=== PATIENT | male | born 1940 | race Caucasian/White ===

== ENCOUNTER 2022-10-14 16:58 | Inpatient (IN) | payer OTHER ==
[~2022-10-14] VITALS: Ht 182.9 cm; Wt 113.4 kg
[2022-10-14 17:03] VITALS: BP_SYST 170
[2022-10-14] MEDS ORDERED: ROSU40TA23 PO (17:57)
[2022-10-14] MEDS ORDERED: ALLO100T PO (17:57)
[2022-10-14] MEDS ORDERED: LEVO75CA5 PO (17:57)
[2022-10-14] MEDS ORDERED: FURO20TA4 PO (17:57)
[2022-10-14] MEDS ORDERED: ACET500P25 PO (17:57)
[2022-10-14] MEDS ORDERED: LISI-652 PO (17:57)
[2022-10-14] MEDS ORDERED: BACITRACIN 1 GM OINT TP ONE ×2 (18:36→18:45)
[2022-10-14] MEDS ORDERED: MORPHINE 4 MG INJ. 4 MG/ML VIAL IM ONE (18:45)
[2022-10-14] MEDS ORDERED: IBUP-1971 PO (19:06)
[2022-10-14] MEDS ORDERED: HYDR-3917 PO (19:06)
[2022-10-14] MEDS ORDERED: ONDANSETRON HCL 4 MG/2 ML VIAL IVP PRN (21:00)
[2022-10-14 21:36] LABS: BASOPHILS # (AUTO) 0.1 K/uL (0.0-0.2); BASOPHILS % (AUTO) 0.8 % (0.0-2.0); EOSINOPHILS # (AUTO) 0.1 K/uL (0.0-0.4); EOSINOPHILS % (AUTO) 0.8 % (0.0-4.0); HEMATOCRIT 33.8 % (36-54); HEMOGLOBIN 10.8 g/dL (14.0-18.0); LYMPHOCYTES # (AUTO) 0.6 K/uL (1.0-5.5); LYMPHOCYTES % (AUTO) 4.6 % (20.5-51.5); MEAN CORPUSCULAR HEMOGLOBIN 29 pg (27-31); MEAN CORPUSCULAR HGB CONC 32 % (32-36); MEAN CORPUSCULAR VOLUME 90 fL (79.0-98.0); MONOCYTES # (AUTO) 1.2 K/uL (0.0-1.0); MONOCYTES % (AUTO) 9.6 % (1.7-9.3); NEUTROPHILS # (AUTO) 10.8 K/uL (1.8-7.7); NEUTROPHILS % (AUTO) 84.2 % (40.0-70.0); PLATELET COUNT (AUTO) 218 K/uL (130-430); RED BLOOD CELL COUNT(AUTO) 3.75 MIL/uL (4.2-6.2); RED CELL DISTRIBUTION WIDTH 15.7 % (9.0-15.0); WHITE BLOOD COUNT (AUTO) 12.8 K/uL (4.8-10.8)
[2022-10-14 21:40] LABS: ANION GAP 10 (5-15); CALCIUM 8.5 mg/dL (8.4-11.0); CHLORIDE 108 mmol/L (98-107); CREATININE 2.07 mg/dL (0.55-1.30); GLUCOSE 286 mg/dL (70-99); UREA NITROGEN, BLOOD 37 mg/dL (8-21)
[2022-10-14 21:48] LABS: ALANINE AMINOTRANSFERASE 21 U/L (12-78); ALBUMIN 3.1 g/dL (3.4-4.8); ASPARTATE AMINOTRANSFERASE 13 U/L (10-37); TOTAL BILIRUBIN 0.3 mg/dL (0.0-1.0)
[2022-10-14] MEDS ORDERED: INSULIN REGULAR, HUMAN 10 UNITS/0.1 ML, 3 ML VIAL ONE (22:41)
[2022-10-14] MEDS: INSULIN REGULAR, HUMAN 100 UNITS/ML, 3 ML VIAL (humuLIN R) SUBCUT PRN (22:44)
[2022-10-14 23:11] VITALS: BP_SYST 155
[2022-10-15] MEDS: INSULIN REGULAR, HUMAN 100 UNITS/ML, 3 ML VIAL (humuLIN R) SUBCUT PRN ×4 (06:25→21:24)
[2022-10-15 08:29] VITALS: BP_SYST 133
[2022-10-15] MEDS ORDERED: FUROSEMIDE 20 MG TABLET PO SCH (11:30)
[2022-10-15] MEDS ORDERED: D5/0.45 NS 1,000 ML IV SCH (11:30)
[2022-10-15] MEDS ORDERED: ONDANSETRON HCL 4 MG/2 ML VIAL IVP PRN (11:30)
[2022-10-15] MEDS ORDERED: HYDROcodone/ACETAMIN 5-325 MG TAB (NORCO/ VICODIN) PO PRN (11:30)
[2022-10-15] MEDS ORDERED: IBUPROFEN 800 MG TABLET PO PRN (11:30)
[2022-10-15] MEDS ORDERED: LORazepam 2 MG/ML VIAL IVP PRN (11:30)
[2022-10-15] MEDS ORDERED: ACETAMINOPHEN 325 MG TABLET PO PRN ×2 (11:30→14:15)
[2022-10-15] MEDS ORDERED: NALOXONE HCL 0.4 MG/ML AMP (NARCAN) IVP PRN ×2 (11:30)
[2022-10-15 11:49] VITALS: BP_SYST 141
[2022-10-15] MEDS: MORPHINE 2 MG/ML INJ. SYRINGE IVP PRN (12:18)
[2022-10-15 16:14] VITALS: BP_SYST 139
[2022-10-15] MEDS: NACL 0.9% 1,000 ML IV SCH ×2 (18:10→23:19)
[2022-10-15 20:00] VITALS: BP_SYST 127
[2022-10-15] MEDS ORDERED: NON-FORMULARY MEDICATION (Rosuvastatin Calcium 40 MG) PO SCH (21:00)
[2022-10-15] MEDS ORDERED: lisinopriL 5 MG TABLET PO SCH (21:00)
[2022-10-15] MEDS: ATORVASTATIN 20 MG TABLET PO SCH (21:12)
[2022-10-15] MEDS: HYDROcodone/ACETAMIN 10-325 MG TAB PO PRN (23:12)
[2022-10-16] VITALS: BP_SYST 124
[2022-10-16 06:17] LABS: BASOPHILS # (AUTO) 0.1 K/uL (0.0-0.2); BASOPHILS % (AUTO) 1.3 % (0.0-2.0); EOSINOPHILS # (AUTO) 0.6 K/uL (0.0-0.4); EOSINOPHILS % (AUTO) 6.3 % (0.0-4.0); HEMATOCRIT 27.3 % (36-54); LYMPHOCYTES # (AUTO) 0.9 K/uL (1.0-5.5); LYMPHOCYTES % (AUTO) 10.2 % (20.5-51.5); MEAN CORPUSCULAR HEMOGLOBIN 30 pg (27-31); MEAN CORPUSCULAR HGB CONC 33 % (32-36); MEAN CORPUSCULAR VOLUME 90 fL (79.0-98.0); MONOCYTES # (AUTO) 1.1 K/uL (0.0-1.0); MONOCYTES % (AUTO) 12.7 % (1.7-9.3); NEUTROPHILS # (AUTO) 6.1 K/uL (1.8-7.7); NEUTROPHILS % (AUTO) 69.5 % (40.0-70.0); PLATELET COUNT (AUTO) 163 K/uL (130-430); RED BLOOD CELL COUNT(AUTO) 3.05 MIL/uL (4.2-6.2); RED CELL DISTRIBUTION WIDTH 15.1 % (9.0-15.0); WHITE BLOOD COUNT (AUTO) 8.8 K/uL (4.8-10.8)
[2022-10-16 06:33] LABS: ALANINE AMINOTRANSFERASE 18 U/L (12-78); ALBUMIN 2.6 g/dL (3.4-4.8); ANION GAP 7 (5-15); ASPARTATE AMINOTRANSFERASE 18 U/L (10-37); CALCIUM 7.8 mg/dL (8.4-11.0); CHLORIDE 108 mmol/L (98-107); CREATININE 1.96 mg/dL (0.55-1.30); GLUCOSE 249 mg/dL (70-99); PHOSPHORUS 3.2 mg/dL (2.7-4.5); TOTAL BILIRUBIN 0.5 mg/dL (0.0-1.0); UREA NITROGEN, BLOOD 37 mg/dL (8-21)
[2022-10-16] MEDS: INSULIN REGULAR, HUMAN 100 UNITS/ML, 3 ML VIAL (humuLIN R) SUBCUT PRN ×4 (06:58→22:20)
[2022-10-16] MEDS: LEVOTHYROXINE SODIUM 0.075 MG TABLET PO SCH (07:02)
[2022-10-16 08:00] VITALS: BP_SYST 138
[2022-10-16] MEDS: ALLOPURINOL 100 MG TABLET (ZYLOPRIM) PO SCH (08:30)
[2022-10-16] MEDS: MORPHINE 2 MG/ML INJ. SYRINGE IVP PRN (08:30)
[2022-10-16] MEDS ORDERED: NON-FORMULARY MEDICATION (Levothyroxine Sodium (Levothyroxine) 75 MCG) PO SCH (09:00)
[2022-10-16] MEDS: NACL 0.9% 1,000 ML IV SCH ×2 (10:16→21:50)
[2022-10-16 11:31] VITALS: BP_SYST 146
[2022-10-16 17:27] VITALS: BP_SYST 141
[2022-10-16] MEDS: ATORVASTATIN 20 MG TABLET PO SCH (21:51)
[2022-10-17] VITALS: BP_SYST 146
[2022-10-17] MEDS: NACL 0.9% 1,000 ML IV SCH ×3 (06:49→20:41)
[2022-10-17 07:02] LABS: BASOPHILS # (AUTO) 0.1 K/uL (0.0-0.2); EOSINOPHILS # (AUTO) 0.6 K/uL (0.0-0.4); EOSINOPHILS % (AUTO) 6.5 % (0.0-4.0); HEMATOCRIT 28.5 % (36-54); HEMOGLOBIN 9.3 g/dL (14.0-18.0); LYMPHOCYTES # (AUTO) 0.8 K/uL (1.0-5.5); LYMPHOCYTES % (AUTO) 9.5 % (20.5-51.5); MEAN CORPUSCULAR HEMOGLOBIN 29 pg (27-31); MEAN CORPUSCULAR HGB CONC 33 % (32-36); MEAN CORPUSCULAR VOLUME 89 fL (79.0-98.0); MONOCYTES # (AUTO) 1.1 K/uL (0.0-1.0); NEUTROPHILS # (AUTO) 6.2 K/uL (1.8-7.7); PLATELET COUNT (AUTO) 169 K/uL (130-430); RED BLOOD CELL COUNT(AUTO) 3.19 MIL/uL (4.2-6.2); RED CELL DISTRIBUTION WIDTH 15.2 % (9.0-15.0); WHITE BLOOD COUNT (AUTO) 8.8 K/uL (4.8-10.8)
[2022-10-17] MEDS: LEVOTHYROXINE SODIUM 0.075 MG TABLET PO SCH (07:07)
[2022-10-17 07:32] LABS: ANION GAP 7 (5-15); CALCIUM 8.3 mg/dL (8.4-11.0); CHLORIDE 108 mmol/L (98-107); CREATININE 1.83 mg/dL (0.55-1.30); GLUCOSE 235 mg/dL (70-99); PHOSPHORUS 3.1 mg/dL (2.7-4.5); UREA NITROGEN, BLOOD 34 mg/dL (8-21)
[2022-10-17 08:00] VITALS: BP_SYST 146
[2022-10-17] MEDS: ALLOPURINOL 100 MG TABLET (ZYLOPRIM) PO SCH (08:48)
[2022-10-17] MEDS: INSULIN REGULAR, HUMAN 100 UNITS/ML, 3 ML VIAL (humuLIN R) SUBCUT PRN ×4 (08:51→20:34)
[2022-10-17 11:24] VITALS: BP_SYST 137
[2022-10-17] MEDS: HYDROcodone/ACETAMIN 10-325 MG TAB PO PRN (11:30)
[2022-10-17 15:13] VITALS: BP_SYST 96
[2022-10-17 20:00] VITALS: BP_SYST 130
[2022-10-17] MEDS: ATORVASTATIN 20 MG TABLET PO SCH (20:23)
[2022-10-18] VITALS: BP_SYST 136
[2022-10-18] MEDS: LEVOTHYROXINE SODIUM 0.075 MG TABLET PO SCH (06:12)
[2022-10-18] MEDS: INSULIN REGULAR, HUMAN 100 UNITS/ML, 3 ML VIAL (humuLIN R) SUBCUT PRN ×4 (06:20→21:39)
[2022-10-18 08:00] VITALS: BP_SYST 136
[2022-10-18] MEDS: ALLOPURINOL 100 MG TABLET (ZYLOPRIM) PO SCH (09:15)
[2022-10-18] MEDS: HYDROcodone/ACETAMIN 10-325 MG TAB PO PRN (09:15)
[2022-10-18] MEDS: NACL 0.9% 1,000 ML IV SCH ×2 (11:30→21:30)
[2022-10-18 12:00] VITALS: BP_SYST 137
[2022-10-18 16:00] VITALS: BP_SYST 132
[2022-10-18 20:00] VITALS: BP_SYST 139
[2022-10-18] MEDS: ATORVASTATIN 20 MG TABLET PO SCH (21:18)
[2022-10-19] VITALS: BP_SYST 133
[2022-10-19 04:20] VITALS: BP_SYST 139
[2022-10-19] MEDS: LEVOTHYROXINE SODIUM 0.075 MG TABLET PO SCH (06:16)
[2022-10-19] MEDS: NACL 0.9% 1,000 ML IV SCH (06:22)
[2022-10-19] MEDS: INSULIN REGULAR, HUMAN 100 UNITS/ML, 3 ML VIAL (humuLIN R) SUBCUT PRN ×3 (06:25→17:07)
[2022-10-19 08:07] VITALS: BP_SYST 159
[2022-10-19] MEDS: ALLOPURINOL 100 MG TABLET (ZYLOPRIM) PO SCH (10:30)
[2022-10-19 11:22] VITALS: BP_SYST 137
[2022-10-19 14:59] VITALS: BP_SYST 122
[2022-10-19] MEDS: MORPHINE 2 MG/ML INJ. SYRINGE IVP PRN (16:04)
[2022-10-19 17:22] VITALS: BP_SYST 122
== END 2022-10-19 17:30 | disposition home health service (06) | DRG 562 ==
LOC: SED 16:58 → SMU 20:48
PROVIDERS: ADMIT Internal Medicine; ATTEND Internal Medicine
PROC: 2W3AX3Z Immobilization of Right Upper Arm using Brace (ICD-10-PCS; principal; 2022-10-14)
DX: S42.341A Displaced spiral fracture of shaft of humerus, right arm, initial encounter for closed fracture (principal); N17.0 Acute kidney failure with tubular necrosis; E44.0 Moderate protein-calorie malnutrition; R65.10 Systemic inflammatory response syndrome (SIRS) of non-infectious origin without acute organ dysfunction; M10.9 Gout, unspecified; E11.65 Type 2 diabetes mellitus with hyperglycemia; E03.9 Hypothyroidism, unspecified; D64.9 Anemia, unspecified; E78.5 Hyperlipidemia, unspecified; E83.51 Hypocalcemia; E88.09 Other disorders of plasma-protein metabolism, not elsewhere classified; W18.30XA Fall on same level, unspecified, initial encounter; W22.09XA Striking against other stationary object, initial encounter; S09.90XA Unspecified injury of head, initial encounter; I12.9 Hypertensive chronic kidney disease with stage 1 through stage 4 chronic kidney disease, or unspecified chronic kidney disease; E11.22 Type 2 diabetes mellitus with diabetic chronic kidney disease; N18.9 Chronic kidney disease, unspecified; Z20.822 Contact with and (suspected) exposure to COVID-19; Z88.8 Allergy status to other drugs, medicaments and biological substances; Z79.899 Other long term (current) drug therapy; Z68.33 Body mass index [BMI] 33.0-33.9, adult; Y99.8 Other external cause status; Y92.007 Garden or yard of unspecified non-institutional (private) residence as the place of occurrence of the external cause; Z79.1 Long term (current) use of non-steroidal anti-inflammatories (NSAID)
CPT/HCPCS: 36415; 70450-TC; 72125-TC; 73060-TC; 76376; 80048; 80053; 82962; 83735; 84100; 84484; 85025; 96372; 97110-GP; 97112-GP; 97530-GP; 99285; J1815; J2270; J2405

== ENCOUNTER 2022-11-17 09:46 | Inpatient (IN) | payer OTHER ==
[~2022-11-17] VITALS: Ht 182.9 cm; Wt 104.3 kg
[~2022-11-17 09:46] MED LIST: ACET500P25 PO; ALLO100T PO; FURO20TA4 PO; HYDR-3917 PO; IBUP-1971 PO; LEVO75CA5 PO; LISI-652 PO; ROSU40TA23 PO
--- NOTE | 2022-11-17 09:50 | NUR ---
Patient to ER bed 05 to gown for evaluation. Side rails up.
[2022-11-17 09:51] VITALS: BP_SYST 140
--- NOTE | 2022-11-17 10:08 | NUR ---
PT BIB BLS FROM HOME C/O ABD PAIN RT LOWER QUADRANT. PT CONSTIPATED X 6DAYS. PT STATES PAIN 3/10. PT STATES HAS GROIN PAIN. PT HAS RT ARM PAIN FROM MECHANICAL FALL ON 10/14. PT HAS BRACE ON RIGHT ARM. PT HISTORY OF CRONIC BACK. PT IS NON AMBULATORY. PT HAS NKA. PT IS NON AMBULATORY. PT IS AAO X4. PT IS RESTING IN BED RAILS UP VSS.
[2022-11-17] MEDS ORDERED: KETOROLAC TROMETHAMINE 30 MG VIAL IVP ONE (10:15)
[2022-11-17] MEDS ORDERED: NACL 0.9% 1,000 ML IV ONE (10:15)
[2022-11-17 10:57] LABS: ALANINE AMINOTRANSFERASE 16 U/L (12-78); ALBUMIN 2.9 g/dL (3.4-4.8); ANION GAP 10 (5-15); ASPARTATE AMINOTRANSFERASE 17 U/L (10-37); CALCIUM 8.5 mg/dL (8.4-11.0); CHLORIDE 110 mmol/L (98-107); LIPASE 24 U/L (73-393); TOTAL BILIRUBIN 0.3 mg/dL (0.0-1.0); UREA NITROGEN, BLOOD 28 mg/dL (8-21)
--- NOTE | 2022-11-17 10:59 | NUR ---
BLOOD GLUCOSE 48 REPORTED FROM LAB, AWARE
[2022-11-17 11:01] LABS: GLUCOSE 48 mg/dL (70-99)
[2022-11-17 11:13] LABS: BASOPHILS # (AUTO) 0.1 K/uL (0.0-0.2); EOSINOPHILS # (AUTO) 0.5 K/uL (0.0-0.4); EOSINOPHILS % (AUTO) 6.1 % (0.0-4.0); HEMOGLOBIN 12.1 g/dL (14.0-18.0); LYMPHOCYTES % (AUTO) 12.2 % (20.5-51.5); MEAN CORPUSCULAR HEMOGLOBIN 28 pg (27-31); MEAN CORPUSCULAR HGB CONC 32 % (32-36); MEAN CORPUSCULAR VOLUME 89 fL (79.0-98.0); MONOCYTES # (AUTO) 0.7 K/uL (0.0-1.0); MONOCYTES % (AUTO) 8.6 % (1.7-9.3); NEUTROPHILS # (AUTO) 5.7 K/uL (1.8-7.7); NEUTROPHILS % (AUTO) 72.1 % (40.0-70.0); PLATELET COUNT (AUTO) 244 K/uL (130-430); RED BLOOD CELL COUNT(AUTO) 4.26 MIL/uL (4.2-6.2); RED CELL DISTRIBUTION WIDTH 16.1 % (9.0-15.0); WHITE BLOOD COUNT (AUTO) 7.9 K/uL (4.8-10.8)
[2022-11-17] MEDS ORDERED: DEXTROSE 50% JECT 50 ML DISP.SYRIN IVP ONE (11:15)
--- NOTE | 2022-11-17 11:15 | NUR ---
Patient awake and responsive, denies pain and or discomfort at this time.
--- NOTE | 2022-11-17 13:51 | NUR ---
Admit bed requested Patient will be admitted to care of [Sean]. Admitted to [Tele] unit. Diagnosis [fall] Inpatient (Yes or No) [yes] Observation (Yes or No) [No] Orientation concerns or request close to nursing station (Yes or No) [No] Covid Status [n/a] On vent or bipap [n/a] Isolation requirements [n/a] Needs a sitter [n/a] From Home (Yes or if No enter name of facility) [n/a] Requires Dialysis (Yes or No) [n/a] Med Rec Completed (Yes of No) []
[2022-11-17] MEDS ORDERED: KCL 10 mEq in D5/0.45NS 1000mL 1,000 ML IV SCH (16:15)
--- NOTE | 2022-11-17 16:47 | NUR ---
Patient will be admitted to care of Dr. chaney. Admitted to MST unit. Will go to room 120B. Belongings list completed. Complete and up to date summary report printed. SBAR report to be given at bedside with opportunity for questions.
--- NOTE | 2022-11-17 16:55 | NUR ---
CONSULT NEUROLOGY LOC JAVIER CHINO SENT A TEXT MESSAGE TO [facility]
[2022-11-17 17:00] VITALS: BP_SYST 115
--- NOTE | 2022-11-17 17:11 | NUR ---
CONSULTATION PAGED YES SDRADRN\SD REASON FOR CONSULTATION: HENRY WAS CONSULT CALLED? YES PERSON WHO WAS NOTIFIED: JUAN MANUEL CONSULTING PHYSICIAN:ARNULFO COWAN NUMERICAL CONTROL MACHINE MACHINIST SPECIALTY: RENAL NUMERICAL CONTROL MACHINE MACHINIST PHONE NUMBER:[phone] REQUESTING PHYSICIAN:ERIN
[2022-11-17 17:37] VITALS: BP_SYST 115
--- NOTE | 2022-11-17 18:34 | NUR ---
RECEIVED PT FROM ER AT 1630. VITALS STABLE. PT WAS IN A DEEP SLEEP. MARYJO AT BEDSIDE ANSWERED ADMISSION QUESTIONS FOR PATIENT. EDUCATED FAMILY ON USE OF CALL LIGHT AND THEY VERBALIZED UNDERSTANDING. ALL NEEDS MET AT THIS TIME, SAFETY CHECKS MADE AND CALL LIGHT WITHIN REACH. WILL ENDORSE TO PAPER NOVELTY MAKER NURSE.
--- NOTE | 2022-11-17 19:40 | NUR ---
PM ASSESSMENT; -Patient is awake, alert, oriented X 4. Pt denies any chest pain,pain,sob,or any acute distress. Pt has a sling on rt arm, good circulation, no tingling or numbness per pt's statement on rt extremity. Patient oriented to hospital room, call light, toileting, pain management and safety-teach back done. Bed alarmed, side rails x3,Call light within reach. Cont to monitor pt.
[2022-11-17 19:42] VITALS: BP_SYST 127
[2022-11-17] MEDS: KCL 10 mEq in D5/0.45NS 1000mL 1,000 ML IV SCH (21:40)
--- NOTE | 2022-11-17 22:05 | NUR ---
ROUNDS; MAINTAINS STERILE FIELD DURING INSERTION PROCEDURE; INSERTED RUSHING CATH #14 MONGOLIAN, GOOD CLOUDY DARK YELLOW RESIDUAL NOTED. COLLECTED U/A AND WILL SEND TO LAB FOR U/A PER ORDER. - ALSO, INSERTED NEW IV OF UA #20 PATENT,GOOD BLOOD RETURNED AFTER FLUSHED W/ NS, ATTEMPTED X1,SECURED WITH TAPE, INFUSING IVF. CALL LIGHT W/IN REACH, SIDE RAILS X3. CONT TO MONITOR PT.
[2022-11-17 22:17] LABS: BILIRUBIN,URINE 1+ (NEGATIVE); BLOOD, URINE 3+ (NEGATIVE); COLOR,URINE YELLOW (YELLOW); GLUCOSE,URINE NEGATIVE (NEGATIVE); KETONES,URINE TRACE (NEGATIVE); LEUKOCYTE ESTERASE ,URINE 2+ (NEGATIVE); NITRITE, URINE NEGATIVE (NEGATIVE); PROTEIN URINE 1+ (NEGATIVE); UROBILINOGEN,URINE 0.2 (0.2-1.0)
[2022-11-17 22:27] LABS: CLARITY/URINE HAZY (CLEAR)
[2022-11-17 23:16] LABS: BACTERIA,URINE MANY /HPF (None Seen); WBC,URINE >100 /HPF (0-3)
[2022-11-18] VITALS: BP_SYST 130
--- NOTE | 2022-11-18 00:10 | NUR ---
ROUNDS; -Pt is resting in bed comfortably. NO ss/ any acute distress noted. VSS. IV site patent, no s/s any infiltration noted. Bed alarmed,side rails x3, call light w/in reach. Cont to monitor pt. Addendum: 11/18/22 at 0027 by [facility], JESSICA LOPEZ ADDITIONAL NOTES; RUSHING CATH W/ GRAVITY DRAINS DARK URINE OUTPUT NOTED.
--- NOTE | 2022-11-18 01:00 | NUR ---
NOTES; ENDORSED TO LINDA NURSE TO CONTINUITY OF CARE.
[2022-11-18] MEDS: KCL 10 mEq in D5/0.45NS 1000mL 1,000 ML IV SCH ×2 (06:39→14:54)
[2022-11-18 08:00] VITALS: BP_SYST 147
--- NOTE | 2022-11-18 08:23 | NUR ---
OPENING NOTES: PT IN BED WITH EYES CLOSED. RESPONDED TO NAME. BREATHING IS EVEN AND UNLABORED ON RA 96%. NO S/S OF DISTRESS OR PAIN REPORTED. UPDATED PT BOARD. VITAL SIGNS STABLE. EDUCATED PT ON USE OF CALL LIGHT. PT VERBALIZED UNDERSTANDING. ALL NEEDS MET AT THIS TIME, SAFETY CHECKS MADE AND CALL LIGHT WITHIN REACH.
--- NOTE | 2022-11-18 08:30 | NUR ---
MD: PAGED DR KHNA TO NOTIFY HIM THAT PT HAS A RIGHT SHOULDER FRACTURE IN A RIGID SLING TO REQUEST ORTHO CONSULT AND TO INFORM HIM THAT THE PATIENT'S URINALYSIS CAME BACK POSITIVE TO REQUEST ANTIBIOTICS. WILL REQUEST PHYSICAL THERAPY EVAL AFTER ORTHO CONSULT.
--- NOTE | 2022-11-18 11:15 | NUR ---
MD: DR KHAN BEDSIDE WITH PATIENT AND DAUGHTER
--- NOTE | 2022-11-18 11:20 | NUR ---
CONSULTATION: REASON FOR CONSULT; RIGHT SHOULDER FRACTURE CONSULTING PHYSICIAN: Raleigh LEMUS ORDERED BY: ERIN SPOKE WITH DR LMEUS HIMSELF AND IS AWARE OF CONSULT [phone]
[2022-11-18] MEDS ORDERED: MILK OF MAGNESIA 30 ML UDC PO ONE (11:30)
[2022-11-18] MEDS ORDERED: DOCUSATE SODIUM 100 MG CAPSULE PO PRN (11:30)
[2022-11-18 12:00] VITALS: BP_SYST 135
--- NOTE | 2022-11-18 12:51 | NUR ---
CONSULTATION: REASON FOR CONSULT: SURGERY CONSULTING PHYSICIAN: FLORECITA ORDERED BY: ERIN SPOKE WITH GARRY [phone]
--- NOTE | 2022-11-18 13:27 | NUR ---
dr hernandez ordered ekg of the patient. he wanted and echo but informed him it has been completed.
[2022-11-18] MEDS: cefTRIAXone 1 GM IVPB PREMIX 50 ML IV SCH (13:52)
--- NOTE | 2022-11-18 15:29 | NUR ---
EULOGIO FROM PHYSICAL THERAPY AND CAITIE FROM OCCUPATIONAL THERAPY SAID THEY WILL WAIT UNTIL THE CONSULT WITH DR DESAI OR DR GIBSON HAS BEEN COMPLETED BEFORE THEY DO THERAPY WITH THE PATIENT.THEY WILL REVISIT THE PATIENT TOMORROW TO FOLLOW UP.
[2022-11-18 16:26] VITALS: BP_SYST 140
--- NOTE | 2022-11-18 16:27 | NUR ---
ST EVALUATION COMPLETED. ST TX NOT INDICATED AT THIS TIME. RECOMMEND PO DIET OF MECHANICAL SOFT/THIN LIQUIDS. DISTANT SUPERVISION AND FULL ASPIRATION PRECAUTIONS
--- NOTE | 2022-11-18 19:30 | NUR ---
CLOSING NOTES: PT IN BED WATCHING TV. NO S/S OF DISTRESS OR PAIN REPORTED. BREATHING IS EVEN AND UNLABORED ON RA 98%. EDUCATED PATIENT ON USE OF CALL LIGHT. VERBALIZED UNDERSTANDING. ALL NEEDS MET AT TIME, SAFETY CHECKS MADE AND CALL LIGHT WITH IN REACH.
[2022-11-18 20:00] VITALS: BP_SYST 141
[2022-11-19] VITALS: BP_SYST 145
[2022-11-19] MEDS: KCL 10 mEq in D5/0.45NS 1000mL 1,000 ML IV SCH ×3 (00:47→23:19)
--- NOTE | 2022-11-19 05:20 | NUR ---
ROUNDING PATIENT IS CONFUSED ON WHERE HE IS AT. HE STATED "NEEDS TO GET UP BECAUSE SON IS CHOKING THROUGH THE WALL". PATIENT WAS ABLE TO STATE NAME AND . REORIENTED PATIENT TO PLACE AND TIME. REPOSITIONED PATIENT AND WILL CONTINUE TO MONITOR.
--- NOTE | 2022-11-19 07:00 | NUR ---
CLOSING NOTES PATIENT IS ASLEEP IN BED. BREATHING IS EQUAL AND UNLABORED. F/C IS IN PLACE. SAFETY CHECKS DONE AND CALL LIGHT WITH IN REACH,
[2022-11-19 07:49] LABS: BASOPHILS # (AUTO) 0.1 K/uL (0.0-0.2); BASOPHILS % (AUTO) 0.5 % (0.0-2.0); EOSINOPHILS # (AUTO) 0.1 K/uL (0.0-0.4); EOSINOPHILS % (AUTO) 0.5 % (0.0-4.0); HEMATOCRIT 34.6 % (36-54); LYMPHOCYTES # (AUTO) 0.4 K/uL (1.0-5.5); LYMPHOCYTES % (AUTO) 3.2 % (20.5-51.5); MEAN CORPUSCULAR HEMOGLOBIN 28 pg (27-31); MEAN CORPUSCULAR HGB CONC 32 % (32-36); MEAN CORPUSCULAR VOLUME 89 fL (79.0-98.0); MONOCYTES % (AUTO) 7.9 % (1.7-9.3); NEUTROPHILS # (AUTO) 10.8 K/uL (1.8-7.7); NEUTROPHILS % (AUTO) 87.9 % (40.0-70.0); PLATELET COUNT (AUTO) 221 K/uL (130-430); RED BLOOD CELL COUNT(AUTO) 3.89 MIL/uL (4.2-6.2); RED CELL DISTRIBUTION WIDTH 15.5 % (9.0-15.0); WHITE BLOOD COUNT (AUTO) 12.3 K/uL (4.8-10.8)
[2022-11-19 08:00] LABS: ALANINE AMINOTRANSFERASE 10 U/L (12-78); ALBUMIN 2.5 g/dL (3.4-4.8); ANION GAP 10 (5-15); ASPARTATE AMINOTRANSFERASE 10 U/L (10-37); CHLORIDE 104 mmol/L (98-107); CHOLESTEROL 87 mg/dL (<200); CREATININE 1.71 mg/dL (0.55-1.30); GLUCOSE 398 mg/dL (70-99); HDL CHOLESTEROL 45 mg/dL (>45); LIPASE 23 U/L (73-393); THYROID STIMULATING HORMONE 0.73 uIu/mL (0.34-4.82); TOTAL BILIRUBIN 0.4 mg/dL (0.0-1.0); TRIGLYCERIDES 98 mg/dL (30-150); UREA NITROGEN, BLOOD 20 mg/dL (8-21)
--- NOTE | 2022-11-19 08:06 | NUR ---
OPENING NOTES: RECEIVED BEDSIDE SBAR, NO S/S OF ANY DISTRESS, NON LABOR BREATHING, IV INTACT, BED AT LOW AND LOCKED POSITION CALL LIGHT IN REACH, ALL SAFETY CHECKS DONE, WILL CONT TO MONITOR PATIENT THOUGHT THE DAY.
[2022-11-19] MEDS ORDERED: LEVOTHYROXINE SODIUM 0.075 MG TABLET PO ONE (08:15)
[2022-11-19] MEDS: lisinopriL 5 MG TABLET PO SCH (08:48)
[2022-11-19] MEDS: ALLOPURINOL 100 MG TABLET (ZYLOPRIM) PO SCH (08:48)
[2022-11-19] MEDS ORDERED: ATORVASTATIN 20 MG TABLET PO ONE (09:00)
[2022-11-19] MEDS ORDERED: DOCU-144 PO (10:27)
--- NOTE | 2022-11-19 11:06 | NUR ---
PATIENT IS D/C, SPOKE WITH , UNABLE TO CARE FOR PATIENT, WILL PAGE DR KHAN FOR SNF/REHAB ORDERS.
[2022-11-19 11:58] VITALS: BP_SYST 140
[2022-11-19] MEDS: cefTRIAXone 1 GM IVPB PREMIX 50 ML IV SCH (12:37)
--- NOTE | 2022-11-19 15:44 | NUR ---
Pt was cleared by nursing for OT eval. Patient was seen for eval with family present. Pt will benefit from SNF with OT/PT tx. Nursing notified. Pls see OT evaluation form in chart for more detail.
[2022-11-19 16:32] VITALS: BP_SYST 125
[2022-11-19] MEDS ORDERED: MELO-89 PO (18:07)
--- NOTE | 2022-11-19 18:39 | NUR ---
CLOSING NOTES: PATIENT REMAINED STABLE TODAY, NO S/S OF ANY DISTRESS NON LABOR BREATHING, BED AT LOW AND LOCKED POSITION CALL LIGHT IN REACH IV INTACT, ALL SAFETY CHECKS DONE THOUGHT THE DAY. WILL GIVE PM SHIFT NURSE BEDSIDE SBAR.
[2022-11-19 20:00] VITALS: BP_SYST 148
[2022-11-20 00:28] VITALS: BP_SYST 132
[2022-11-20] MEDS ORDERED: LEVOTHYROXINE SODIUM 0.075 MG TABLET PO SCH (07:00)
--- NOTE | 2022-11-20 07:32 | NUR ---
CLOSING NOTES PATIENT IS IN BED AXO 4 WITH NO S/S OF DISTRESS OR DISCOMFORT. ALL NEEDS WERE MET AT THIS TIME. SAFETY CHECKS DONE AND CALL LIGHT WITH IN REACH
[2022-11-20 08:00] VITALS: BP_SYST 153
--- NOTE | 2022-11-20 08:10 | NUR ---
Opening Nurse Notes: Patient laying in bed. A/O x 3, Estonian speaking. Patient breathing even on room air. No pain, no distress, no SOB. Patient is on a mechanically soft CCHO diet. Patient has DALTON 20G with D%1/2 running at 100mL/hr. Patient has a Estrada draining to gravity, pinkish tinged. Bed is locked in lowest position. Call light within reach, all needs met, will continue with plan of care.
[2022-11-20] MEDS ORDERED: ATORVASTATIN 20 MG TABLET PO SCH (09:00)
[2022-11-20] MEDS: ALLOPURINOL 100 MG TABLET (ZYLOPRIM) PO SCH (09:16)
[2022-11-20] MEDS: lisinopriL 5 MG TABLET PO SCH (09:17)
--- NOTE | 2022-11-20 09:25 | NUR ---
Nurse Notes: Patient's family revealed that patient is diabetic type 2. Blood sugar was 419. Page to Dr. Estrada put in for insulin orders.
[2022-11-20] MEDS: KCL 10 mEq in D5/0.45NS 1000mL 1,000 ML IV SCH (09:54)
--- NOTE | 2022-11-20 10:00 | NUR ---
Nurse NOtes: Dr. Estrada called back. Discussed GFR and CT scan. CT scan to proceed as ordered.
[2022-11-20] MEDS: cefTRIAXone 1 GM IVPB PREMIX 50 ML IV SCH (10:49)
[2022-11-20 11:31] VITALS: BP_SYST 147
--- NOTE | 2022-11-20 12:15 | NUR ---
Afternoon Nurse Notes: Patient laying in bed stable. Patient on room air. No pain, no distress, no SOB. Bed is locked in lowest position. Call light within reach, all needs met, will continue with plan of care. Family at bedside.
--- NOTE | 2022-11-20 13:05 | NUR ---
Nurse Notes: 12:[address] chaney 13:[address] Chaney at [facility]. Dr. Chaney will put in orders for insulin and PRN pain meds.
--- NOTE | 2022-11-20 13:31 | NUR ---
RN DID NOT MEDICALLY CLEAR PATIENT FOR AM AND PM PT TREATMENT.
[2022-11-20 13:32] VITALS: BP_SYST 135
[2022-11-20] MEDS ORDERED: INSNLG7030 SUBCUT (14:18)
[2022-11-20] MEDS ORDERED: ASA81 PO (14:21)
[2022-11-20] MEDS ORDERED: ROCPM1 IV (14:46)
[2022-11-20] MEDS ORDERED: PHEN-726 PO (15:19)
--- NOTE | 2022-11-20 15:30 | NUR ---
Dietitian Recommendations * Continue Mechanical Soft diet * Ensure BID, Toney BID (supplements yield 880 kcal/day, 45 gm protein/day) * Encourage good PO intakes LP, MS, RD Please refer to Nutrition Assessment for details. Addendum: 11/20/22 at [address] Amended: Links added.
[2022-11-20] MEDS ORDERED: PHENAZOPYRIDINE HCL 100 MG TABLET PO ONE (15:45)
[2022-11-20] MEDS ORDERED: PHENAZOPYRIDINE HCL 100 MG TABLET PO SCH ×3 (15:45→21:00)
[2022-11-20 16:00] VITALS: BP_SYST 144
--- NOTE | 2022-11-20 16:10 | NUR ---
Late Noon Nurse Notes: Patient laying in bed. No pain, no distress, no SOB. Bed is locked in lowest position. Call light within reach, all needs met, will continue with plan of care.
--- NOTE | 2022-11-20 16:15 | NUR ---
Discharge Nurse Notes: Patient was picked up by ambulance. Family at bedside. Paperwork completed and [facility]
== END 2022-11-20 17:12 | DRG 682 ==
LOC: SED 09:46 → SMU 13:40
PROVIDERS: ADMIT Specialist; ATTEND Specialist
DX: N17.0 Acute kidney failure with tubular necrosis (principal); R53.2 Functional quadriplegia; E87.0 Hyperosmolality and hypernatremia; E44.1 Mild protein-calorie malnutrition; K59.00 Constipation, unspecified; E03.9 Hypothyroidism, unspecified; E11.42 Type 2 diabetes mellitus with diabetic polyneuropathy; Z20.822 Contact with and (suspected) exposure to COVID-19; I12.9 Hypertensive chronic kidney disease with stage 1 through stage 4 chronic kidney disease, or unspecified chronic kidney disease; E11.22 Type 2 diabetes mellitus with diabetic chronic kidney disease; N18.9 Chronic kidney disease, unspecified; Z88.8 Allergy status to other drugs, medicaments and biological substances; Z79.899 Other long term (current) drug therapy; Z74.01 Bed confinement status; Z79.4 Long term (current) use of insulin; Z90.79 Acquired absence of other genital organ(s); Z87.310 Personal history of (healed) osteoporosis fracture; Z68.31 Body mass index [BMI] 31.0-31.9, adult
CPT/HCPCS: 36415; 71045; 73030; 73502; 76376; 80053; 80061; 81000; 83690; 83880; 84443; 84484; 85025; 87086; 92610-GN; 93005; 93306; 96361; 96374; 97116-GP; 97163-GP; 97530-GP; 99285; J0696; J1885; J7030; J7050; Q9967; U0003